=== PATIENT | female | born 1965 | race Hispanic/Latino ===

== ENCOUNTER 2017-07-19 08:58 | Emergency (ER) | payer BC ==
[~2017-07-19 08:58] MED LIST: ALBU1.252 IH; ALBU8.5H8 IH; FLUT1DIS IH; FLUT1DIS4 IH; LEVO500T2 PO; METH2TAB PO
== END 2017-07-19 10:10 | disposition home or self-care (01) ==
LOC: EDH 08:58
DX: K11.20 Sialoadenitis, unspecified (principal); R50.81 Fever presenting with conditions classified elsewhere; J45.909 Unspecified asthma, uncomplicated; Z90.710 Acquired absence of both cervix and uterus; Z98.890 Other specified postprocedural states
CPT/HCPCS: 87880

== ENCOUNTER 2017-08-07 16:33 | Emergency (ER) | payer BC | END 2017-08-07 18:16 | disposition home or self-care (01) | LOC: EDH 16:33 | DX: J45.901 Unspecified asthma with (acute) exacerbation (principal) ==

== ENCOUNTER 2017-12-14 10:58 | Emergency (ER) | payer BC ==
[2017-12-14 11:33] LABS: APPEARANCE,URINE Cloudy (CLEAR); BILIRUBIN,URINE Negative (NEGATIVE); COLOR,URINE Dark Yellow (YELLOW); GLUCOSE, URINE (UA) Negative (NEGATIVE); OCCULT BLOOD,URINE Moderate (NEGATIVE); PH,URINE 5.5 (5.0-8.0); PROTEIN,URINE Negative (NEGATIVE)
[2017-12-14 11:34] LABS: KETONES,URINE Trace mg/dL (NEGATIVE); LEUKOCYTE ESTERASE ,URINE Large (NEGATIVE); NITRATE,URINE Negative (NEGATIVE)
[2017-12-14] MEDS ORDERED: ONDANSETRON HCL 4 MG/2 ML VIAL ONE (11:44)
[2017-12-14] MEDS ORDERED: SODIUM CHLORIDE 0.9% 1000ML 1,000 ML IV ONE (11:44)
[2017-12-14 11:51] LABS: BASOPHILS % (AUTO) 1.1 % (0.0-5.0); EOSINOPHILS % (AUTO) 0.3 % (0.0-8.0); HEMATOCRIT 43.6 % (36-48); LYMPHOCYTES % (AUTO) 14.9 % (21.0-51.0); MEAN CORPUSCULAR HEMOGLOBIN 31.4 pg (27.0-33.0); MEAN CORPUSCULAR HGB CONC 34.8 g/dL (32.0-36.0); MEAN CORPUSCULAR VOLUME 90.2 fL (79-99); NEUTROPHILS % (AUTO) 75.7 % (40.0-77.0); PLATELET COUNT (AUTO) 263 K/uL (130-400); RED BLOOD CELL COUNT(AUTO) 4.83 MIL/uL (4.00-5.50); RED CELL DISTRIBUTION WIDTH 12.5 % (11.0-15.5); WHITE BLOOD COUNT (AUTO) 10.9 K/uL (4.8-10.8)
[2017-12-14 12:04] LABS: CREATININE 0.9 mg/dL (0.5-1.5); POTASSIUM 3.8 mmol/L (3.5-5.1)
[2017-12-14 12:08] LABS: ALBUMIN 3.5 g/dL (3.5-5.0); BILIRUBIN,TOTAL 0.9 mg/dL (0.2-1.0); TOTAL PROTEIN, SERUM 7.7 g/dL (6.0-8.3)
[2017-12-14 12:24] LABS: BACTERIA,URINE Many /HPF (None Seen)
[2017-12-14] MEDS ORDERED: LEVOFLOXACIN 500 MG TABLET ONE (14:42)
== END 2017-12-14 14:59 | disposition home or self-care (01) ==
LOC: EDH 10:58
DX: N10 Acute pyelonephritis (principal); R19.7 Diarrhea, unspecified; R05 Cough; J45.909 Unspecified asthma, uncomplicated; M79.10 Myalgia, unspecified site; Z90.710 Acquired absence of both cervix and uterus; Z98.890 Other specified postprocedural states
CPT/HCPCS: 36415; 80053; 81001; 83605; 85025; 87040; 87077; 87088; 87186; 87804 ×2; 96361; 96374; 99285; J2405; J7030

== ENCOUNTER 2019-01-11 09:56 | Emergency (ER) | payer BC ==
[2019-01-11] MEDS ORDERED: METHYLPREDNISOLONE SOD SUCC 125MG/2ML VIAL ONE (10:14)
[2019-01-11] MEDS ORDERED: IPRATROPIUM/ALBUTEROL SULFATE 3 ML SOLUTION IH ONE ×2 (10:23→10:52)
[2019-01-11] MEDS ORDERED: ALBUTEROL SULFATE 0.083% 2.5 MG/3 ML INH IH ONE (11:20)
[2019-01-11] MEDS ORDERED: MAGNESIUM 2GM PREMIX 50ML 50 ML IV ONE (11:57)
[2019-01-11 12:35] LABS: BASOPHILS % (AUTO) 0.3 % (0.0-5.0); HEMATOCRIT 45.7 % (36-48); LYMPHOCYTES % (AUTO) 17.6 % (21.0-51.0); MEAN CORPUSCULAR HEMOGLOBIN 31.8 pg (27.0-33.0); MEAN CORPUSCULAR HGB CONC 34.9 g/dL (32.0-36.0); MONOCYTES % (AUTO) 3.3 % (3.0-13.0); NEUTROPHILS % (AUTO) 76.8 % (40.0-77.0); NUCLEATED RED BLOOD CELLS 0.1 % (0.0-0.19); PLATELET COUNT (AUTO) 281 K/uL (130-400); RED BLOOD CELL COUNT(AUTO) 5.02 MIL/uL (4.00-5.50); RED CELL DISTRIBUTION WIDTH 12.6 % (11.0-15.5); WHITE BLOOD COUNT (AUTO) 10.2 K/uL (4.8-10.8)
[2019-01-11 12:45] LABS: INR 0.99 (0.85-1.15); PARTIAL THROMBOPLASTIN TIME 26.7 SEC (26.3-35.5); PROTHROMBIN TIME 10.4 SEC (9.6-11.6)
[2019-01-11 12:47] LABS: CREATININE 0.7 mg/dL (0.5-1.5); POTASSIUM 3.2 mmol/L (3.5-5.1)
[2019-01-11 12:51] LABS: ALBUMIN 3.8 g/dL (3.5-5.0); BILIRUBIN,TOTAL 0.5 mg/dL (0.2-1.0); TOTAL PROTEIN, SERUM 7.8 g/dL (6.0-8.3)
[2019-01-11] MEDS ORDERED: POTASSIUM CHLORIDE 20 MEQ ERTAB PO ONE (12:52)
== END 2019-01-11 13:24 | disposition home or self-care (01) ==
LOC: EDH 09:56
DX: J45.901 Unspecified asthma with (acute) exacerbation (principal); Z90.710 Acquired absence of both cervix and uterus; Z88.5 Allergy status to narcotic agent
CPT/HCPCS: 36415; 71045; 80053; 82550; 84484; 85025; 85610; 85730; 87804 ×2; 93005; 94640 ×3; 96365; 96375; 99285; J2930; J3475

== ENCOUNTER 2019-01-22 07:24 | Emergency (ER) | payer BC ==
[2019-01-22] MEDS ORDERED: KETOROLAC TROMETHAMINE 60 MG/2 ML VIAL ONE (08:07)
[2019-01-22] MEDS ORDERED: DIAZEPAM 5 MG TABLET ONE (08:08)
== END 2019-01-22 09:17 | disposition home or self-care (01) ==
LOC: EDH 07:24
DX: M54.5 Low back pain (principal); G89.29 Other chronic pain; J45.909 Unspecified asthma, uncomplicated; Z90.710 Acquired absence of both cervix and uterus; Z88.8 Allergy status to other drugs, medicaments and biological substances
CPT/HCPCS: 96372; 99283; J1885

== ENCOUNTER 2021-05-23 11:21 | Emergency (ER) | payer BC ==
[~2021-05-23] VITALS: Ht 157.5 cm; Wt 113.4 kg
[2021-05-23 12:20] LABS: BASOPHILS % (AUTO) 0.2 % (0.0-5.0); EOSINOPHILS % (AUTO) 0.6 % (0.0-8.0); HEMATOCRIT 47.9 % (36-48); LYMPHOCYTES % (AUTO) 2.5 % (21.0-51.0); MEAN CORPUSCULAR HEMOGLOBIN 31.7 pg (27.0-33.0); MEAN CORPUSCULAR HGB CONC 35.1 g/dL (32.0-36.0); MEAN CORPUSCULAR VOLUME 90.4 fL (79-99); NEUTROPHILS % (AUTO) 90.3 % (40.0-77.0); PLATELET COUNT (AUTO) 292 K/uL (130-400); RED CELL DISTRIBUTION WIDTH 12.2 % (11.0-15.5); WHITE BLOOD COUNT (AUTO) 13.8 K/uL (4.8-10.8)
[2021-05-23 12:29] LABS: CREATININE 0.9 mg/dL (0.5-1.5); POTASSIUM 4.2 mmol/L (3.5-5.1)
[2021-05-23 12:34] LABS: ALBUMIN 4.1 g/dL (3.5-5.0); BILIRUBIN,TOTAL 0.8 mg/dL (0.2-1.0); TOTAL PROTEIN, SERUM 8.2 g/dL (6.0-8.3)
[2021-05-23 12:38] VITALS: BP 130/78
[2021-05-23] MEDS ORDERED: DICYCLOMINE 20MG (10MG/ML) AMP IM STA (12:44)
[2021-05-23] MEDS ORDERED: FAMOTIDINE 20MG VIAL IV ONE (13:00)
[2021-05-23] MEDS ORDERED: ONDANSETRON 4MG INJ IVP ONE (13:00)
[2021-05-23] MEDS ORDERED: MORPHINE 2 MG SYG IVP ONE (13:00)
[2021-05-23] MEDS ORDERED: 0.9%NACL 1000ML 1,000 ML IV ONE ×2 (13:00→14:00)
[2021-05-23 13:05] LABS: APPEARANCE,URINE TURBID (CLEAR); BILIRUBIN,URINE SMALL (NEGATIVE); COLOR,URINE YELLOW (YELLOW); GLUCOSE, URINE (UA) NEGATIVE (NEGATIVE); KETONES,URINE NEGATIVE (NEGATIVE); LEUKOCYTE ESTERASE ,URINE SMALL (NEGATIVE); NITRATE,URINE NEGATIVE (NEGATIVE); OCCULT BLOOD,URINE MODERATE (NEGATIVE); PH,URINE 5.5 (5.0-8.0); PROTEIN,URINE TRACE mg/dL (NEGATIVE); UROBILINOGEN,URINE 0.2 mg/dL (0.2-1.0)
[2021-05-23 13:13] LABS: AMORPHOUS SEDIMENT,UR Moderate /LPF (None Seen); BACTERIA,URINE Many /HPF (None Seen)
[2021-05-23] MEDS ORDERED: CEFTRIAXONE 1G VIAL IV SCH (13:30)
[2021-05-23] MEDS ORDERED: ONDA4TAB10 PO (15:16)
[2021-05-23] MEDS ORDERED: L.AC1CAP6 PO (15:16)
[2021-05-23] MEDS ORDERED: DICY20TA2 PO (15:16)
== END 2021-05-23 15:31 | disposition home or self-care (01) ==
LOC: EDH 11:21
DX: K52.9 Noninfective gastroenteritis and colitis, unspecified (principal); E86.0 Dehydration; J45.909 Unspecified asthma, uncomplicated; Z79.899 Other long term (current) drug therapy; Z98.890 Other specified postprocedural states
CPT/HCPCS: 36415; 80053; 81001; 83690; 85025; 87088; 96361; 96372; 96374; 96375; 99284; J0500; J0696; J2405; J3490; J7030 ×2

== ENCOUNTER 2021-08-27 19:51 | Emergency (ER) | payer BC ==
[~2021-08-27] VITALS: Ht 157.5 cm; Wt 115.7 kg
[~2021-08-27 19:51] MED LIST changes: +DICY20TA2 PO; +L.AC1CAP6 PO; +ONDA4TAB10 PO
[2021-08-27 20:31] LABS: APPEARANCE,URINE CLOUDY (CLEAR); BASOPHILS % (AUTO) 0.4 % (0.0-5.0); BILIRUBIN,URINE NEGATIVE (NEGATIVE); COLOR,URINE YELLOW (YELLOW); EOSINOPHILS % (AUTO) 1.9 % (0.0-8.0); GLUCOSE, URINE (UA) NEGATIVE (NEGATIVE); HEMATOCRIT 43.9 % (36-48); KETONES,URINE 5 mg/dL (NEGATIVE); LEUKOCYTE ESTERASE ,URINE MODERATE (NEGATIVE); LYMPHOCYTES % (AUTO) 21.4 % (21.0-51.0); MEAN CORPUSCULAR HEMOGLOBIN 30.8 pg (27.0-33.0); MEAN CORPUSCULAR HGB CONC 34.6 g/dL (32.0-36.0); MONOCYTES % (AUTO) 8.1 % (3.0-13.0); NEUTROPHILS % (AUTO) 67.6 % (40.0-77.0); NITRATE,URINE NEGATIVE (NEGATIVE); OCCULT BLOOD,URINE SMALL (NEGATIVE); PLATELET COUNT (AUTO) 325 K/uL (130-400); PROTEIN,URINE NEGATIVE (NEGATIVE); RED BLOOD CELL COUNT(AUTO) 4.93 MIL/uL (4.00-5.50); UROBILINOGEN,URINE 0.2 mg/dL (0.2-1.0); WHITE BLOOD COUNT (AUTO) 11.4 K/uL (4.8-10.8)
[2021-08-27 20:38] LABS: POTASSIUM 3.6 mmol/L (3.5-5.1)
[2021-08-27 20:41] LABS: BACTERIA,URINE Few /HPF (None Seen); TRICHOMONAS,URINE Moderate /LPF (None Seen)
[2021-08-27 20:42] LABS: CALCIUM OXALATE CRYSTALS,UR Few /LPF (None Seen); MUCUS,URINE Rare LPF (None Seen); SQUAMOUS EPITHELIAL CELL,UR Moderate /HPF (0-2)
[2021-08-27 20:43] LABS: ALBUMIN 3.4 g/dL (3.5-5.0); TOTAL PROTEIN, SERUM 7.2 g/dL (6.0-8.3)
[2021-08-27] MEDS ORDERED: IOHEXOL 350 MG/ML 100ML INFUS..BTL IV ONE (20:56)
[2021-08-27] MEDS ORDERED: LACTATED RINGERS 1000ML 1,000 ML IV ONE ×2 (21:00)
[2021-08-28] MEDS ORDERED: METRONIDAZOLE 500 MG TABLET PO SCH
[2021-08-28 00:11] VITALS: BP 124/61
== END 2021-08-28 00:32 | disposition home or self-care (01) ==
LOC: EDH 19:51
DX: K92.1 Melena (principal); A59.9 Trichomoniasis, unspecified; R19.7 Diarrhea, unspecified; J45.909 Unspecified asthma, uncomplicated; Z98.890 Other specified postprocedural states; Z79.899 Other long term (current) drug therapy; Z88.6 Allergy status to analgesic agent; Z88.8 Allergy status to other drugs, medicaments and biological substances
CPT/HCPCS: 74177; 99284; 96360; 82270; 84484; 80053; 85025; 87088; 81001; 36415; 93005; J7120; Q9967

== ENCOUNTER 2024-02-21 13:23 | Emergency (ER) | payer BC ==
[~2024-02-21] VITALS: Ht 157.5 cm; Wt 113.4 kg
[~2024-02-21 13:23] MED LIST changes: +ONDA-243 PO; -ONDA4TAB10 PO
--- NOTE | 2024-02-21 13:31 | ERN ---
General Chief Complaint: Ankle Problem Stated Complaint: ANKLE Time Seen by MD: 13:24 History of Present Illness Initial Comments 58-year-old female brought in by EMS from [facility] for a fall. Patient was walking and stepped into a pothole while at [place]. She complains of right foot and ankle pain. There is some swelling to the right lateral malleolus. Denies any other injuries. Allergies: Coded Allergies: No Known Drug Allergies (Verified Allergy, Unknown, 11/27/16) acetaminophen (Unverified Allergy, Unknown, HALLUCINATIONS, 08/27/21) hydrocodone (Unverified Allergy, Unknown, HALLUCINATIONS, 08/27/21) Home Meds Active Scripts Meloxicam (Meloxicam) 15 Mg Tablet, 15 MG PO DAILY PRN for PAIN for 10 Days, #10 TAB Prov:LAYO CHANDLER DO 02/21/24 L.acidoph & [place],B.lactis (Probiotic) 1 Each Capsule, 1 EACH PO DAILY, #30 CAP Prov:FITTINGSAMANP 05/23/21 Dicyclomine HCl (Bentyl) 20 Mg Tab, 20 MG PO TID, #15 TAB Prov:SAMAN TRUJILLO 05/23/21 Ondansetron (Ondansetron Odt) 4 Mg Tab.rapdis, 4 MG PO TID, #15 TAB Prov:SAMAN TRUJILLO 05/23/21 Reported Medications Methylprednisolone (Medrol) 2 Mg Tablet, 2 MG PO as directed on pack, TAB 11/27/16 Levofloxacin (Levaquin) 500 Mg Tablet, 500 MG PO DAILY for 7 Days, TAB 11/27/16 Fluticasone/Salmeterol (Advair 100-50 Diskus) 1 Each Blst.w.dev, 1 EACH IH DAILY 11/27/16 Fluticasone/Salmeterol (ADVAIR 100-50 DISKUS) 14 Inh/Disk Inh, 1 INH IH DAILY, INHALER 11/27/16 Albuterol Sulfate (Proair Hfa) 8.5 Gm Hfa.aer.ad, 2 PUFF IH BID 11/27/16 Albuterol Sulfate (Albuterol Sulfate) 1.25 Mg/3 Ml Vial.neb, 1.25 MG IH HS, INH 11/27/16 Past Medical History Past Medical History: Asthma, Hypertension Medical History Other: TUMOR REMOVED RIGHT BREAST Past Surgical History: Hysterectomy, Other, Surgical History Other: R BREAST TUMOR REMOVAL Family History Family History: DM, HTN Social History Social History: Negative ROS Dictation CONSTITUTIONAL: No chills, no fever, no weakness, no diaphoresis, no malaise. HEAD/FACE: No signs of trauma. EENT: No eye pain, no blurred vision, no tearing, no double vision, no ear pain, no ear discharge, no nose pain, no nasal congestion, no throat pain, no throat swelling, no mouth pain. RESPIRATORY: No cough, no orthopnea, no SOB, no stridor, no wheezing. CARDIOVASCULAR: No chest pain, no edema, no palpitations, no syncope. GASTROINTESTINAL/ABDOMINAL: No abdominal pain, no constipation, no diarrhea, no nausea, no vomiting. GENITOURINARY: No abnormal discharge, no dysuria, no frequent urination, no hematuria. No complaints of pain in the genitals. MUSCULOSKELETAL: Right ankle pain INTEGUMENTARY: No change in color, no change in hair/nails, no dryness, no lesion, no lumps, no rash. NEUROLOGICAL/PSYCH: No anxiety, not depressed, no emotional problem, no headache, no numbness, no pre-existing deficit, no history of seizures, no tremors, no weakness. HEMATOLOGIC/LYMPHATIC: Not anemic, no history of blood clots, no apparent bleeding, no bruising, glands not swollen. All Systems Negative, Except as Noted. Physical Exam Physical Exam Dictation VITAL SIGNS: Reviewed. GENERAL APPEARANCE: Alert, oriented x3, no acute distress, obese. HEAD AND FACE: Non-traumatic. EYES: PERRL, pink conjunctivas, eyelid no trauma, anterior chamber clear. EARS: Pinnas intact and no signs of trauma or erythema. Ear canals clear and no discharge. TMs no erythema. NOSE: No discharge, no bleeding. OROPHARYNX: Mouth normal, teeth no caries, tongue pink. Pharynx clear, no erythema. Tonsils no exudates, no abscesses noted. Mucous membrane moist. NECK: Supple, non-tender, no thyromegaly, no masses, no JVD, no bruits. BREAST: Deferred. CHEST: No tenderness, no crepitus, no paradoxical movement, no retractions. LUNGS: Clear, well-ventilated, symmetric, no rales, no wheezing, no rhonchi, no stridor, good breath sounds bilaterally. HEART: Regular rate, regular rhythm, no murmur, no gallops. VASCULAR: No peripheral edema. ABDOMEN: Soft, positive bowel sounds, nondistended, no guarding, nontender, no rebound, no masses no hepatomegaly, no splenomegaly, no Malik's sign, no hernias. RECTAL: Deferred. GENITAL: Deferred. NEUROLOGICAL: Normal speech, gross motor function intact, gross sensory function intact. MUSCULOSKELETAL: Neck nontender, full range of motion, back nontender, full range of motion. EXTREMITIES: Nontender, full range of motion. SKIN: Color pink, dry, no turgor, no rash, no lacerations, no abrasions, no contusions. LYMPHATICS: Deferred. MDM CC: Leg pain status post fall Historian: Patient Comorbidities: Obesity Limitations by social determinants: None Vital signs stable Clinical exam shows some swelling to the ankle but otherwise unremarkable. X-rays per my independent interpretation showed no acute fractures Placed in a ricky wrap We will DC with RICE therapy and NSAIDs. REASON: fall, injury ORDERING PHYSICIAN: LAYO CHANDLER DO PROCEDURE: TIBFIB RT - TIBIA/FIBULA 2VWS RT TIBIA/FIBULA 2VWS RT REASON: fall, injury TECHNIQUE: 3 views were obtained. FINDINGS: There is no evidence of fracture or dislocation. There is no joint effusion. The soft tissues appear unremarkable. There is no evidence of a radiopaque foreign body. IMPRESSION: No acute findings. REASON: fall, injury ORDERING PHYSICIAN: LAYO CHANDLER DO PROCEDURE: FT 3VW RT - FOOT COMP 3+VWS RT FOOT COMP 3+VWS RT REASON: fall, injury TECHNIQUE: 3 views were obtained. FINDINGS: There is no evidence of fracture or dislocation. There is no joint effusion. The soft tissues appear unremarkable. There is no evidence of a radiopaque foreign body. IMPRESSION: No acute findings. REASON: fall, injury ORDERING PHYSICIAN: LAYO CHANDLER DO PROCEDURE: [id number] - ANKLE COMP 3VWS RT ANKLE COMP 3VWS RT REASON: fall, injury TECHNIQUE: 3 views were obtained. FINDINGS: There is no evidence of fracture or dislocation. There is no joint effusion. The soft tissues appear unremarkable. There is no evidence of a radiopaque foreign body. IMPRESSION: No acute findings. ED Course Orders Procedure Category Date Status Time Foot Comp 3+Vws Rt RAD 02/21/24 Resulted 13:24 Ankle Comp 3vws Rt RAD 02/21/24 Resulted 13:24 Tibia/Fibula 2vws Rt RAD 02/21/24 Resulted 13:24 Ketorolac PHA 02/21/24 Complete Tromethamine 15mg/Ml 13:30 Current Medications Medications (Trade) Dose Ordered Sig/Darrell Route PRN Reason Start Time Stop Time Status Last Admin Dose Admin Ketorolac Tromethamine (toRADol) 15 mg ONCE ONCE IM 02/21/24 13:30 02/21/24 13:31 DC 02/21/24 14:06 Vital Signs Date Time Temp Pulse Resp B/P (MAP) Pulse Ox O2 Delivery O2 Flow Rate FiO2 02/21/24 14:53 97.2 78 18 137/81 98 Room Air* 0 21 02/21/24 13:24 97.9 81 16 147/87 98 Room Air* 0 21 02/21/24 13:24 97.9 81 16 147/87 98 Room Air 0 DX & DISP Disposition: Discharge Departure Impression: Primary Impression: Right ankle sprain Condition: Stable Scripts Meloxicam (Meloxicam) 15 Mg Tablet 15 MG PO DAILY PRN for PAIN for 10 Days, #10 TAB Prov: LAYO CHANDLER DO 02/21/24 Additional Instructions: The x-rays of your lower leg, ankle, and foot do not show any fractures. Your symptoms are consistent with a sprain/strain. I have prescribed meloxicam to use as needed for pain. I recommend that you rest the ankle as needed. You can apply ice twice per day for the next 3-5 days for at least 20 minutes to reduce swelling. You can use a compression device such as an Ricky wrap as needed. Try to elevate the leg as much as possible over the next few days to reduce swelling. If you continue with symptoms, I recommend that you follow up with your primary doctor for re-evaluation in 3-5 days Referrals: JAZLYN VALDEZ MD (PCP) LAYO CHANDLER DO Feb 21, 2024 13:31
[2024-02-21] MEDS: ketOROlac 15MG/ML VIAL (15MG/ML) IM ONE (14:06)
--- NOTE | 2024-02-21 14:39 | HMCIMG ---
ANKLE COMP 3VWS RT REASON: fall, injury TECHNIQUE: 3 views were obtained. FINDINGS: There is no evidence of fracture or dislocation. There is no joint effusion. The soft tissues appear unremarkable. There is no evidence of a radiopaque foreign body. IMPRESSION: No acute findings.
--- NOTE | 2024-02-21 14:41 | HMCIMG ---
TIBIA/FIBULA 2VWS RT REASON: fall, injury TECHNIQUE: 3 views were obtained. FINDINGS: There is no evidence of fracture or dislocation. There is no joint effusion. The soft tissues appear unremarkable. There is no evidence of a radiopaque foreign body. IMPRESSION: No acute findings.
--- NOTE | 2024-02-21 14:41 | HMCIMG ---
FOOT COMP 3+VWS RT REASON: fall, injury TECHNIQUE: 3 views were obtained. FINDINGS: There is no evidence of fracture or dislocation. There is no joint effusion. The soft tissues appear unremarkable. There is no evidence of a radiopaque foreign body. IMPRESSION: No acute findings.
[2024-02-21] MEDS ORDERED: MELO-108 PO (14:42)
[2024-02-21 14:53] VITALS: BP 137/81; PULSE 78; RESP 18; TEMP 97.1; O2SAT 98
== END 2024-02-21 15:04 | disposition home or self-care (01) ==
LOC: EDH 13:23
DX: S93.491A Sprain of other ligament of right ankle, initial encounter (principal); E66.9 Obesity, unspecified; I10 Essential (primary) hypertension; J45.909 Unspecified asthma, uncomplicated; Z79.51 Long term (current) use of inhaled steroids; Z88.5 Allergy status to narcotic agent; Z90.710 Acquired absence of both cervix and uterus; W17.2XXA Fall into hole, initial encounter; Y93.01 Activity, walking, marching and hiking; Y92.89 Other specified places as the place of occurrence of the external cause; Y99.8 Other external cause status
CPT/HCPCS: 99284; 73610; 73630; 73590; 96372; J1885